=== PATIENT | male | born 2000 | race African-American/Black ===

== ENCOUNTER 2023-02-18 23:17 | Emergency (ER) | payer BC ==
[2023-02-18 23:31] VITALS: BP 146/83; PULSE 68; RESP 20; TEMP 98.7
[2023-02-19] MEDS ORDERED: AMOX TR/POT CLAV 875MG/125MG TABLETS (FP) PO ONE (01:27)
[2023-02-19] MEDS ORDERED: KETOROLAC TROMETHAMINE 30 MG/1 ML VIAL IM ONE (01:27)
[2023-02-19] MEDS ORDERED: KETOROLAC TROMETHAMINE 30 MG/1 ML VIAL ONE (01:31)
[2023-02-19] MEDS ORDERED: AMOX TR/POT CLAV 875MG/125MG TABLETS (FP) ONE (01:31)
== END 2023-02-19 02:04 | disposition home or self-care (01) ==
LOC: JERFT 23:17
PROC: 3E0233Z Introduction of Anti-inflammatory into Muscle, Percutaneous Approach (ICD-10-PCS; principal; 2023-02-19)
DX: K04.7 Periapical abscess without sinus (principal); K06.1 Gingival enlargement; R51.9 Headache, unspecified
CPT/HCPCS: 96372; 99284-25